=== PATIENT | male | born 1940 | race Caucasian/White ===

== ENCOUNTER 2016-06-28 11:18 | Outpatient (CLI) | payer MEDICARE, OTHER | END 2016-06-28 11:19 | disposition home or self-care (01) | DX: E78.00 Pure hypercholesterolemia, unspecified (principal); E55.9 Vitamin D deficiency, unspecified; I48.0 Paroxysmal atrial fibrillation; I25.10 Atherosclerotic heart disease of native coronary artery without angina pectoris ==

== ENCOUNTER 2016-11-01 14:57 | Outpatient (CLI) | payer MEDICARE, OTHER ==
[2016-11-01 15:39] LABS: CALCIUM 9.4 mg/dL (8.5-10.3); POTASSIUM 4.2 mmol/L (3.5-5.0)
[2016-11-01 16:50] LABS: HCT - HEMATOCRIT 42.6 % (42.0-52.0); HGB - HEMOGLOBIN 14.4 g/dL (14.0-18.0); MEAN CORPUSCULAR HEMOGLOBIN 32.2 pg (27.0-31.0); MEAN CORPUSCULAR HGB CONC 33.9 g/dL (32.0-36.0); MEAN CORPUSCULAR VOLUME 95.2 fL (80.0-94.0); MEAN PLATELET VOLUME 8.1 fL (7.4-11.4); RED BLOOD COUNT 4.47 10^6/uL (4.70-6.10); RED CELL DISTRIBUTION WIDTH 14.1 % (12.0-15.0); WHITE BLOOD COUNT 9.1 x10^3/uL (4.8-10.8)
== END 2016-11-01 14:58 | disposition home or self-care (01) ==
LOC: LAB 14:57
PROVIDERS: ATTEND Internal Medicine Cardiovascular Disease
DX: I48.2 Chronic atrial fibrillation (principal)
CPT/HCPCS: 36415; 80048

== ENCOUNTER 2018-08-15 06:27 | Emergency (ER) | payer MEDICARE, OTHER ==
[2018-08-15 07:03] LABS: BASOPHILS # (AUTO) 0.1 10^3/uL (0.0-0.1); BASOPHILS % (AUTO) 0.5 %; EOSINOPHILS # (AUTO) 0.1 10^3/uL (0.0-0.7); EOSINOPHILS % (AUTO) 1.2 %; HGB - HEMOGLOBIN 15.6 g/dL (14.0-18.0); LYMPHOCYTES # (AUTO) 2.4 10^3/uL (1.5-3.5); LYMPHOCYTES % (AUTO) 22.6 %; MEAN CORPUSCULAR HEMOGLOBIN 31.6 pg (27.0-31.0); MEAN CORPUSCULAR HGB CONC 32.8 g/dL (32.0-36.0); MEAN CORPUSCULAR VOLUME 96.4 fL (80.0-94.0); MEAN PLATELET VOLUME 9.3 fL (7.4-11.4); MONOCYTES # (AUTO) 0.9 10^3/uL (0.0-1.0); MONOCYTES % (AUTO) 8.8 %; NEUTROPHILS # (AUTO) 6.9 10^3/uL (1.5-6.6); NEUTROPHILS % (AUTO) 66.3 %; PLT - PLATELET COUNT 159 10^3/uL (130-450); RED BLOOD COUNT 4.94 10^6/uL (4.70-6.10); WHITE BLOOD COUNT 10.5 x10^3/uL (4.8-10.8)
--- NOTE | 2018-08-15 07:13 | ED Physician Documentation ---
History of Present Illness - Stated complaint Stated Complaint: ABD PX - Chief complaint Chief Complaint: Abd Pain - History obtained from History obtained from: Patient, Family - Additonal information Additional information: Patient is a 78-year-old male with complicated past medical history including known Alzheimer's disease presenting with his who is concerned about abdominal pain over the past several days. Patient is unable to provide any history. Per his , patient is at his mental and physical baseline. reports the patient has been complaining of diffuse abdominal pain for the past several days. She believes he has had decreased bowel movements, but denies any particular changes in urination. also denies fever or vomiting. Patient saw his primary care provider several days ago who believed he was suffering from constipation and started him on a bowel regimen. has been giving him his medications compliantly. No other improving or worsening factors noted. Review of Systems Constitutional: denies: Fever GI: reports: Abdominal Pain, Constipation. denies: Nausea, Vomiting : denies: Dysuria PD PAST MEDICAL HISTORY - Past Medical History Past Medical History: No Cardiovascular: Hypertension, High cholesterol, Coronary artery disease, Atrial fibrillation Respiratory: None Neuro: Alzhiemer's, Dementia Endocrine/Autoimmune: None GI: None : None Psych: None Musculoskeletal: Other Derm: None - Past Surgical History Past Surgical History: Yes General: Other Ortho: Shoulder arthroplasty Cardiovascular: Coronary stent HEENT: Tonsil/Adenoidectomy - Present Medications Home Medications: Ambulatory Orders Medication Instructions Recorded Confirmed Atorvastatin [Lipitor] 10 mg PO DAILY 12/02/15 08/15/18 Rivaroxaban [Xarelto] 20 mg PO DAILY 12/02/15 08/15/18 Docusate Sodium 250Mg Capsule 250 - 500 mg PO DAILY capsule 12/06/15 08/15/18 [Colace 250Mg Capsule] Senna [Senokot] 8.6 - 17.2 mg PO DAILY tablet 12/06/15 08/15/18 Donepezil HCl [Aricept] 10 mg PO 08/15/18 Melatonin 3 mg PO 08/15/18 Memantine HCl [Namenda] 10 mg PO 08/15/18 Metoprolol Succinate [Toprol Xl] 25 mg PO DAILY 08/15/18 08/15/18 QUEtiapine [SEROquel] 25 mg PO ONCE 08/15/18 08/15/18 - Allergies Allergies/Adverse Reactions: Allergies Allergy/AdvReac Type Severity Reaction Status Date / Time No Known Drug Allergies Allergy Verified 12/02/15 09:55 - Social History Does the pt smoke?: No Smoking Status: Never smoker Does the pt drink ETOH?: No Does the pt have substance abuse?: No - Immunizations Immunizations are current?: Yes PD ED PE NORMAL - Vitals Vital signs reviewed: Yes - General General: No acute distress, Well developed/nourished, Other (Resting comfortably in bed, interactive, pleasant). No: Alert and oriented X 3 (Demented) - HEENT HEENT: Atraumatic, Pharynx benign, Dentition benign. No: Moist mucous membranes (Dry) - Cardiac Cardiac: RRR. No: No murmur (Holosystolic murmur (chronic)) - Respiratory Respiratory: No respiratory distress, Clear bilaterally - Abdomen Abdomen: Soft, Non tender, Non distended, Other (No guarding or rebound) - Derm Derm: Normal color, Warm and dry, No rash - Extremities Extremities: No deformity, No tenderness to palpate - Neuro Neuro: Other (No gross motor or sensory deficits. Normal speech, disoriented. At baseline per .) - Psych Psych: Normal mood, Normal affect Results - Vitals Vitals: Vital Signs - 24 hr 08/15/18 08/15/18 08/15/18 06:31 08:38 10:38 Temperature 36.4 C L Heart Rate 74 85 87 Respiratory 20 20 20 Rate Blood Pressure 133/77 H 122/90 H 106/91 H O2 Saturation 98 100 100 Oxygen O2 Source Room air - Labs Labs: Laboratory Tests 08/15/18 08/15/18 08/15/18 06:50 06:50 09:00 WBC 10.5 RBC 4.94 Hgb 15.6 Hct 47.6 MCV 96.4 H MCH 31.6 H MCHC 32.8 RDW 14.0 Plt Count 159 MPV 9.3 Neut # (Auto) 6.9 H Lymph # (Auto) 2.4 [place] # (Auto) 0.9 Eos # (Auto) 0.1 Baso # (Auto) 0.1 Absolute Nucleated RBC 0.00 Nucleated RBC % 0.0 Sodium 141 Potassium 3.8 Chloride 102 Carbon Dioxide 27 Anion Gap 12.0 BUN 17 Creatinine 1.0 Estimated GFR (MDRD) 72 L Glucose 104 H Calcium 9.6 Total Bilirubin 1.7 H AST 34 ALT 35 Alkaline Phosphatase 86 Total Protein 7.2 Albumin 4.8 Globulin 2.4 Albumin/Globulin Ratio 2.0 Lipase 34 Urine Color LT. YELLOW Urine Clarity CLEAR Urine pH 7.0 Ur Specific [place] <=1.005 Urine Protein NEGATIVE Urine Glucose (UA) NEGATIVE Urine Ketones NEGATIVE Urine Occult Blood NEGATIVE Urine Nitrite NEGATIVE Urine Bilirubin NEGATIVE Urine Urobilinogen 0.2 (NORMAL) Ur Leukocyte Esterase NEGATIVE Ur Microscopic Review NOT INDICATED Urine Culture Comments NOT INDICATED PD MEDICAL DECISION MAKING - ED course Complexity details: reviewed results, re-evaluated patient, considered differential, d/w patient, d/w family ED course: Patient is unable to provide much history and therefore further information is obtained through . Do have concern for possible constipation and small bowel obstruction given history. Also considering gallbladder disease, appendicitis, AAA, pancreatitis, renal disease, UTI, diverticulitis, but feel less likely. Physical exam reveals that he is slightly dehydrated patient started on IV fluids. Patient is otherwise comfortable and do not feel he requi res other medications at this time. Screening lab work obtained and returned relatively unremarkable.Urinalysis also does not show signs of infection. CT abdomen/pelvis obtained and did not find evidence of acute pathology, but significant stool burden. Patient did receive magnesium citrate and enema in the ED with significant production of stool. At this time, feel that it is safe to discharge patient home and discussed at length with bowel regimen for home, diet and hydration recommendations, return precautions, and primary care follow-up. voiced understanding and is comfortable with discharge plan. Departure - Departure Disposition: 01 Home, Self Care Clinical Impression: Abdominal pain Qualifiers: Abdominal location: generalized Qualified Code(s): R10.84 - Generalized abdominal pain Constipation Qualifiers: Constipation type: unspecified constipation type Qualified Code(s): K59.00 - Constipation, unspecified Condition: Good Instructions: ED Constipation, ED Abdominal Pain Unkn Cause Male Follow-Up: Bruno Dukes MD [Primary Care Provider] - Within 3 Days Comments: Please continue home medications as previously instructed including medications for constipation. Follow-up with primary care physician in next 2 to 3 days and return to ED sooner if you experience worsening symptoms or have other concerns.
[2018-08-15 07:16] LABS: ALBUMIN 4.8 g/dL (3.2-5.5); BILIRUBIN,TOTAL 1.7 mg/dL (0.2-1.0); CALCIUM 9.6 mg/dL (8.5-10.3); TOTAL PROTEIN 7.2 g/dL (6.7-8.2)
[2018-08-15] MEDS ORDERED: SODIUM CHLORIDE 0.9% 1,000 ML IV ONE (07:39)
[2018-08-15] MEDS ORDERED: IOVERSOL 320 100 ML VIAL IVP ONE ×2 (07:50→15:17)
--- NOTE | 2018-08-15 08:41 | CT Report ---
Reason: diffuse pain, decreased BM Procedure Date: 08/15/2018 Accession Number: [id number] / [id number] Procedure: CT - Abdomen/Pelvis W CPT Code: FULL RESULT: EXAM: CT ABDOMEN AND PELVIS EXAM DATE: 08/15/2018 08:07 AM. CLINICAL HISTORY: Diffuse pain, decreased BM. COMPARISONS: None. TECHNIQUE: Routine helical CT imaging was performed through the abdomen and pelvis. IV contrast: 100 cc of Optiray 320. Enteric contrast: No. Reconstructions: Coronal and sagittal. In accordance with CT protocol optimization, one or more of the following dose reduction techniques were utilized for this exam: automated exposure control, adjustment of mA and/or KV based on patient size, or use of iterative reconstructive technique. FINDINGS: Lung Bases: Bibasilar scar/atelectasis. Heart size upper normal. Extensive coronary artery calcified plaque. Aortic valve calcifications. Small hiatal hernia. Paraesophageal lymph node measuring 6 mm in short axis dimension. Liver: Normal. No masses. Gallbladder/Bile Ducts: Mildly contracted. No biliary ductal dilatation. Spleen: Normal. Pancreas: Normal. Adrenal Glands: Normal. Kidneys: Kidneys enhance symmetrically. Bilateral renal low-attenuation lesions are seen, the largest in the right kidney measuring 13 mm, and the largest in the left kidney measuring 14 mm. No nephrolithiasis. No hydronephrosis. No ureteral dilatation or ureteral calculi. No CT evidence of pyelonephritis. Peritoneal Cavity/Bowel: Stomach is mildly distended and unremarkable. No free air. No small bowel obstruction or small bowel wall thickening. Tiny fatty umbilical hernia. Cecum is in the right mid abdomen. Moderate fluid distention of the mid and proximal colon involving the ascending and transverse colon with a moderate volume of stool in the descending colon and sigmoid colon with the largest volume of stool in the rectum with a transverse and AP dimension measuring up to 8.4 x 7.6 cm with mild thickening of the rectum. Mild perirectal edema also present. No evidence for free air. Diverticuli are seen in the colon, particularly the distal colon. No enlarged retroperitoneal or mesenteric lymph nodes. No intra-abdominal fluid collections. The appendix is well visualized and normal. Pelvic Organs: Urinary bladder mildly distended and unremarkable. Prostate gland and seminal vesicles are unremarkable. There is perirectal edema. Large region of fluid is present in the scrotum on the left which may represent a hydrocele. This is incompletely included. Vasculature: Vascular calcifications. No aneurysm. Mesenteric vasculature is patent. No occlusion. Bones: Degenerative changes of the lower thoracic and lumbar spine. Grade 1 anterolisthesis of L4 on L5. Levoscoliosis of the lumbar spine. Degenerative changes of both hip joints. Other: None. IMPRESSION: 1. Moderate volume of stool in the descending and sigmoid colon with a large volume of stool in the rectum with a maximal dimension of the rectum measuring up to 8.4 cm. Mild rectal thickening and perirectal edema findings which can be seen with stercoral colitis. Moderate fluid distention of the mid and proximal colon also present. 2. Normal appendix. No bowel obstruction. 3. Bilateral renal low-attenuation lesions, indeterminate, although possibly cysts. No nephrolithiasis. No hydronephrosis. RADIA
[2018-08-15] MEDS ORDERED: MAGNESIUM CITRATE 296 ML BOTTLE PO STA (09:00)
[2018-08-15 09:12] LABS: BILIRUBIN,URINE NEGATIVE (NEGATIVE); GLUCOSE, URINE (UA) NEGATIVE (NEGATIVE); KETONES,URINE (UA) NEGATIVE (NEGATIVE); LEUKOCYTE ESTERASE, URINE NEGATIVE (NEGATIVE); NITRITE,URINE NEGATIVE (NEGATIVE); OCCULT BLOOD,URINE NEGATIVE (NEGATIVE); PROTEIN,URINE NEGATIVE (NEGATIVE); UROBILINOGEN,URINE 0.2 (NORMAL) E.U./dL (NORMAL)
[2018-08-15 09:13] LABS: CLARITY,URINE CLEAR (CLEAR)
[2018-08-15 10:46] VITALS: BP 106/91
== END 2018-08-15 11:52 | disposition home or self-care (01) ==
LOC: ED 06:27
DX: R10.84 Generalized abdominal pain (principal); K59.00 Constipation, unspecified; E86.0 Dehydration; I10 Essential (primary) hypertension; E78.00 Pure hypercholesterolemia, unspecified; I25.10 Atherosclerotic heart disease of native coronary artery without angina pectoris; I48.91 Unspecified atrial fibrillation; G30.9 Alzheimer's disease, unspecified; F02.80 Dementia in other diseases classified elsewhere, unspecified severity, without behavioral disturbance, psychotic disturbance, mood disturbance, and anxiety; Z95.5 Presence of coronary angioplasty implant and graft; Z79.01 Long term (current) use of anticoagulants
CPT/HCPCS: 36415; 74177; 80053; 81003; 83690; 85025; 96360; 96361; 99283; 99284; A9270; Q9967; 81001; 87086

== ENCOUNTER 2019-05-10 19:47 | Outpatient (CLI) | payer MEDICARE, OTHER | END 2019-05-10 19:48 | disposition EMS.NT | LOC: EMS 19:47 | PROVIDERS: ATTEND Surgery | DX: S00.01XA Abrasion of scalp, initial encounter (principal); W18.39XA Other fall on same level, initial encounter; Y92.008 Other place in unspecified non-institutional (private) residence as the place of occurrence of the external cause ==

== ENCOUNTER 2020-02-25 | Outpatient (CLI) | payer MEDICARE, OTHER | END 2020-02-25 21:36 | disposition EMS.NT | DX: R53.1 Weakness (principal) ==

== ENCOUNTER 2021-03-19 19:45 | Outpatient (CLI) | payer MEDICARE, OTHER | END 2021-03-19 19:46 | disposition EMS.NT | LOC: EMS 19:45 | DX: Z03.89 Encounter for observation for other suspected diseases and conditions ruled out (principal) ==

== ENCOUNTER 2021-08-20 10:17 | Inpatient (IN) | payer OTHER ==
[2021-08-20] MEDS ORDERED: MORPHINE 2 MG/ML CARPUJECT IVP PRN (11:37)
[2021-08-20] MEDS: MORPHINE 2 MG/ML CARPUJECT IVP SCH ×4 (13:48→23:59)
[2021-08-20] MEDS: LORazepam 2 MG/ML VIAL IVP PRN (17:08)
[2021-08-21] MEDS: MORPHINE 2 MG/ML CARPUJECT IVP SCH ×5 (03:54→19:58)
[2021-08-21] MEDS: SODIUM CHLORIDE FLUSH 0.9% 10 ML SYRINGE IVP SCH ×2 (07:57→16:08)
[2021-08-21] MEDS: LORazepam 2 MG/ML VIAL IVP PRN ×2 (07:58→20:51)
[2021-08-21] MEDS: GLYCOPYRROLATE 1 MG/5 ML VIAL IVP PRN (19:53)
[2021-08-22] MEDS: MORPHINE 2 MG/ML CARPUJECT IVP SCH ×6 (00:23→21:00)
[2021-08-22] MEDS: SODIUM CHLORIDE FLUSH 0.9% 10 ML SYRINGE IVP SCH ×3 (00:23→16:26)
[2021-08-22 08:20] VITALS: BP 91/57
[2021-08-22] MEDS: LORazepam 2 MG/ML VIAL IVP PRN ×3 (08:41→18:47)
[2021-08-22] MEDS: GLYCOPYRROLATE 1 MG/5 ML VIAL IVP PRN ×2 (08:41→22:10)
[2021-08-22] MEDS: LORazepam 2 MG/ML VIAL IVP SCH (22:09)
[2021-08-23] MEDS: MORPHINE 2 MG/ML CARPUJECT IVP SCH ×9 (00:19→22:33)
[2021-08-23] MEDS: SODIUM CHLORIDE FLUSH 0.9% 10 ML SYRINGE IVP SCH ×8 (00:20→22:33)
[2021-08-23] MEDS: LORazepam 2 MG/ML VIAL IVP SCH ×4 (06:01→20:32)
[2021-08-23] MEDS: GLYCOPYRROLATE 1 MG/5 ML VIAL IVP PRN ×2 (08:48→20:33)
[2021-08-23] MEDS ORDERED: LORazepam 2 MG/ML VIAL IVP PRN (11:07)
[2021-08-24] MEDS: SODIUM CHLORIDE FLUSH 0.9% 10 ML SYRINGE IVP SCH ×3 (00:49→08:12)
[2021-08-24] MEDS: MORPHINE 2 MG/ML CARPUJECT IVP SCH ×5 (00:49→08:04)
[2021-08-24] MEDS: LORazepam 2 MG/ML VIAL IVP SCH ×3 (00:50→08:04)
[2021-08-24] MEDS: GLYCOPYRROLATE 1 MG/5 ML VIAL IVP PRN (08:12)
--- NOTE | 2021-08-26 17:23 | DISCHARGE SUMMARY ---
Discharge Summary Admit Date: 08/20/21 Discharge Date: 08/24/21 Discharge Disposition: 20 - DIAGNOSES Admission Diagnoses: acute myocardial infarction and acute heart failure Discharge Diagnoses with Status of Each Condition: Acute hypoxic resp failure Acute DC CHF Advanced dementia - HPI History of Present Illness: 81 yo w/advanced dementia who resides at [facility]. He became acutely dyspneic on the night of admission. Facility couldn't locate his POLST form. He was placed on NRB mask and transported to ED. Ultimately, decision was made to admit to [facility] level of care. Pt was placed on scheduled meds w/good effect. He has some increasing sxs and meds were adjusted on 08/22 and again 08/23 w/good effect. Pt ultimately on 08/24. - ALLERGIES Allergies/Adverse Reactions: Allergies Allergy/AdvReac Type Severity Reaction Status Date / Time No Known Drug Allergies Allergy Verified 08/20/21 03:13 - MEDICATIONS Home Medications: Ambulatory Orders Medication Instructions Recorded Confirmed Donepezil HCl [Aricept] 10 mg PO DAILY 08/15/18 08/23/21 Memantine HCl [Namenda] 20 mg PO DAILY 08/15/18 08/23/21 Metoprolol Succinate [Toprol Xl] 25 mg PO DAILY 08/15/18 08/23/21 QUEtiapine [SEROquel] 25 mg PO QPM 08/15/18 08/23/21
== END 2021-08-24 09:12 | disposition expired | DRG 189 ==
LOC: MS2 13:23
PROVIDERS: ADMIT Family Medicine; ATTEND Family Medicine
DX: J96.01 Acute respiratory failure with hypoxia (principal); I21.4 Non-ST elevation (NSTEMI) myocardial infarction; I11.0 Hypertensive heart disease with heart failure; I50.9 Heart failure, unspecified; F03.90 Unspecified dementia, unspecified severity, without behavioral disturbance, psychotic disturbance, mood disturbance, and anxiety; Z66 Do not resuscitate; I25.10 Atherosclerotic heart disease of native coronary artery without angina pectoris; E78.5 Hyperlipidemia, unspecified; F32.A Depression, unspecified; Z20.822 Contact with and (suspected) exposure to COVID-19; Z95.5 Presence of coronary angioplasty implant and graft; Z51.5 Encounter for palliative care
CPT/HCPCS: 36415; 71045; 80053; 81001; 82803; 83605; 83690; 83880; 84484; 85025; 87633; 93005; 96361; 96365; 96366; 96368; 96375; 99281; 99285; J2060; 81003; 87086

== ENCOUNTER → 2021-08-20 | Outpatient (CLI) | payer MEDICARE, OTHER | END | disposition critical access hospital (66) | LOC: EMS 02:55 | DX: R06.00 Dyspnea, unspecified (principal); R06.89 Other abnormalities of breathing; R61 Generalized hyperhidrosis; I50.9 Heart failure, unspecified | CPT/HCPCS: A0425; A0427 ==